=== PATIENT | male | born 1995 | race African-American/Black ===

== ENCOUNTER 2022-04-19 23:26 | Emergency (ER) | payer OTHER ==
[~2022-04-19] VITALS: Ht 170.2 cm; Wt 59.0 kg
[2022-04-19] MEDS ORDERED: KETOROLAC 30MG/ML VIAL IM ONE (23:45)
[2022-04-20] MEDS ORDERED: LIDOCAINE HCL/PF 1% 10 MG/ML 5ML VIAL INFIL ONE (00:15)
[2022-04-20 00:42] VITALS: BP 128/88
== END 2022-04-20 03:50 | disposition home or self-care (01) ==
LOC: ER 23:39
DX: S62.306A Unspecified fracture of fifth metacarpal bone, right hand, initial encounter for closed fracture (principal); W18.39XA Other fall on same level, initial encounter; Y93.89 Activity, other specified; Y92.89 Other specified places as the place of occurrence of the external cause; Y99.8 Other external cause status
CPT/HCPCS: 73130; 96372; 99283; J1885; J3490; Z7610